=== PATIENT | female | born 1935 | race Caucasian/White ===

== ENCOUNTER 2022-05-14 12:41 | Emergency (ER) | payer MEDICARE, SELFPAY ==
--- NOTE | ~2022-05-14 | XR_ITS ---
XR chest 1V portable DATE: 05/14/2022 13:09 INDICATION: Weakness TECHNIQUE: Portable upright AP chest on 05/14/2022 at 1302 hours COMPARISON: 11/22/2018 AP chest FINDINGS: There is moderate elevation right leaf of the diaphragm, chronic, also present on 11/22/2018 . Normal heart size. Aortic calcification and mild aortic unfolding. No hilar or mediastinal enlargement. No pulmonary infiltrate or consolidation, pleural effusion or pulmonary vascular congestion or pneumo thorax. Diffuse osteopenia. Severe glenohumeral osteoarthritis is noted bilaterally, with probable bilateral rotator cuff atrophy . Multiple apparently recent lateral left rib fractures, including at least the fourth through sixth ri bs. 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 BIT CLEANER IMPRESSION: Multiple recent lateral left rib fractures Osteopenia Severe bilateral glenohumeral osteoarthritis, probable bilateral chronic rotato r cuff atrophy Chronic elevation right diaphragm No active cardiac pulmonary disease Aortic atherosclerosis
--- NOTE | 2022-05-14 12:49 | ECG_ITS ---
Measurements Intervals [place] Rate: 84 P: 61 AL: 201 QRS: -42 QRSD: 78 T: 15 QT: 391 QTc: 463 Interpretive Statements SINUS RHYTHM WITH SINUS ARRHYTHMIA LEFT AXIS DEVIATION BORDERLINE AV CONDUCTION DELAY POOR R WAVE PROGRESSION, ANTERIOR LEADS BORDERLINE T WAVE ABNORMALITY- INFERIOR LEADS BASELINE ARTIFACT- I, II, AVR, AVL, AVF BORDERLINE ECG COMPARED TO ECG 11/22/2018 19:41:33 SINUS ARRHYTHMIA NOW PRESENT LEFT-AXIS DEVIATION NOW PRESENT Electronically Signed On 05-14-2022 13:08:34 LIABILITY CLAIMS EXAMINER by Errol Carvalho D.O.
--- NOTE | 2022-05-14 13:18 | ED.GENADULT ---
HPI - General Adult General Chief complaint: Weakness Stated complaint: FTT, TIRED, DECREASE PO INTAKE Time Seen by Provider: 05/14/22 13:18 Source: patient, family and EMS Mode of arrival: EMS Limitations: no limitations History of Present Illness HPI narrative: Patient is 87 years old white female brought to the emergency room by ambulance from home with her daughters was telling me that patient is weak, does not eat or drink, does not take her medication, refused any blood work-up over 1 year. Patient lives alone, family assist on daily basis. Patient denies any fever, chills, nausea, vomiting, diarrhea, constipation, chest pain, shortness of breath, headache. Related Data Home Medications Medication Instructions Recorded Confirmed citalopram 40 mg tablet 20 mg PO DAILY 04/05/21 10/20/21 mirtazapine 7.5 mg tablet 7.5 mg PO DAILY 04/05/21 10/20/21 propranolol 20 mg tablet 20 mg PO Q12H 10/20/21 10/20/21 Allergies Allergy/AdvReac Type Severity Reaction Status Date / Time No Known Allergies Allergy Verified 05/14/22 12:48 Review of Systems Review of Systems: All systems reviewed & are unremarkable except as noted in HPI and below PMFSH Family History Family History Father Patient's father is Family history of Alzheimer's disease Mother Patient's mother is Other Diabetes mellitus Family history of arthritis Hypertension Social History Social History Smoking status: Never smoker Second hand tobacco smoke exposure: No Alcohol intake: current Exam Narrative: General appearance: Well-developed, malnourished Skin: Normal color Head: Normocephalic, nontraumatic Eyes: Clear conjunctiva ENT: Oropharynx normal, ears normal, nose normal Neck: Supple, nontender Chest and respiratory: Airway patent, no respiratory distress, no accessory muscle use Heart: Regular rate/rhythm Abdomen: Soft, nontender, no organomegaly, quiet bowel sounds Vascular: Normal peripheral pulses, normal capillary refill. Musculoskeletal: Normal range of motion, nontender back Neurologic: Alert and oriented ?3, PHP DEVELOPER is normal as tested, no gross motor deficit Course Consultations Consultation #1: transcription coordinator, Patient is not qualified for hospice at this time, Date: 05/14/22 Time: 15:19 Vital Signs Vital signs: Vital Signs Pulse Rate 84 05/14/22 14:09 Pulse Rate 78 05/14/22 16:18 Respiratory Rate 16 05/14/22 16:18 Blood Pressure 133/76 05/14/22 16:18 Pulse Oximetry 98 05/14/22 16:18 Medical Decision Making MDM Narrative Medical decision making narrative: Patient lives alone, family help on daily basis, does not eat or drink enough daily for a while. Her daughter requested DNR and hospice also requested to not keep patient in the hospital and would like to take her home but would like to see what is going on in her blood work-up. Currently patient is DNR and would like to change to comfort measures only and hospice. Family physician unable to get her to hospice because she is not qualified. Patient denying any symptoms, Physical examination showed no significant abnormality except that patient looks weak but not in any pain or distress, smiling, and appreciating the staff and hospital attention. Labs, EKG, chest x-ray ordered. Work-up showed slight elevation of creatinine of 1.4 patient had previous elevated creatinine up to 1.6 in 2019. Albumin level of 3.4 Which can qualify patient for malnutrition. The patient is very happy to go back home, family agreed. The pt was
[2022-05-14 14:09] VITALS: PULSE 84
[2022-05-14 14:16] LABS: Basophils Percent Auto 0.3 % (0.2-1.2); Eosinophils Absolute Auto 0.2 K/mm3 (0-0.3); Eosinophils Percent Auto 2.6 % (0-4.4); Hematocrit 46.4 % (37.0-47.0); Hemoglobin 14.3 g/dL (12.0-15.0); Immature Granulocyte Absolute 0.03 K/mm3 (0.00-0.031); Immature Granulocyte Percent A 0.4 % (0-0.5); Lymphocytes Absolute Auto 1.12 K/mm3 (0.9-3.2); Lymphocytes Percent Auto 14.8 % (18.3-44.2); Mean Corpuscular HGB Conc 30.8 g/dl (32-36); Mean Corpuscular Hemoglobin 29.9 pg (26-34); Mean Corpuscular Volume 96.9 fl (80-100); Monocytes Absolute Auto 0.5 K/mm3 (0.1-0.6); Monocytes Percent Auto 7.1 % (2.6-8.5); Neutrophils Absolute Auto 5.7 K/mm3 (1.3-6.7); Neutrophils Percent Auto 74.8 % (45.5-73.1); Platelet Count Result 390 k/mm3 (150-375); Red Blood Count 4.79 M/mm3 (4.2-5.4); Red Cell Distribution Width 13.4 % (11.5-14.5); White Blood Count 7.6 K/mm3 (4.5-10.0)
[2022-05-14 14:17] LABS: Appearance Urine Clear (Clear); Bilirubin Urine 2+ (Negative); Blood Urine Negative (Negative); Color Urine Yellow (Yellow); Glucose Urine UA Negative (Negative); Ketones Urine Trace mg/dL (Negative); Leukocyte Esterase Ur Trace LEU/UL (Negative); Nitrate Urine Negative (Negative); Protein Urine Negative (Negative); Specific Grav Ur >= 1.030 (1.001-1.035); Urobilinogen Urine 0.2 mg/dL (<2.0)
[2022-05-14 14:28] LABS: Add Urine Microscopic? YES; Mucus Urine Rare /lpf; Squamous Epithelial Cell Urine Rare /hpf (Few)
[2022-05-14 14:30] LABS: Alanine Aminotransferase 15 U/L (6-35); Albumin Level 3.4 g/dL (3.5-5.1); Alkaline Phosphatase 85 U/L (38-126); Anion Gap 7 mmol/L (8-16); Aspartate Amino Transferase 23 U/L (14-36); Bilirubin,Total 0.7 mg/dL (0.2-1.3); Blood Urea Nitrogen 43 mg/dL (7-17); Calcium 8.8 mg/dL (8.4-10.2); Carbon Dioxide 24 mmol/L (22-30); Chloride 111 mmol/L (98-107); Estimated CRCL calculation 19 ml/min; Estimated Glomerular Filt Rate 36; Glucose 83 mg/dL (65-110); Potassium 4.6 mmol/L (3.4-5.0); Sodium 142 mmol/L (137-145)
[2022-05-14 16:18] VITALS: BP 133/76; PULSE 78; RESP 16; O2SAT 98
== END 2022-05-14 16:19 | disposition home or self-care (01) ==
PROVIDERS: Emergency Provider Emergency Medicine; PCP Internal Medicine
DX: F32.9 Major depressive disorder, single episode, unspecified (principal); R62.7 Adult failure to thrive; Z68.22 Body mass index [BMI] 22.0-22.9, adult; Z66 Do not resuscitate; R94.31 Abnormal electrocardiogram [ECG] [EKG]
CPT/HCPCS: 36415; 71045; 80053; 81001; 85025; 93005; 99283

== ENCOUNTER 2022-06-29 19:54 | Observation (INO) | payer MEDICARE, SELFPAY ==
[2022-06-29] VITALS (11 sets, daily range): BP systolic 100–102; BP diastolic 68–77; PULSE 54–64; RESP 12–20; TEMP 36.2–36.6; O2SAT 92–99
--- NOTE | ~2022-06-29 | CT_ITS ---
EXAMINATION: CT brain wo con INDICATION: Confusion COMPARISON: None TECHNIQUE: Standard unenhanced head CT. The dose-length product (DLP) was 832.33 mGy-cm. The mA was a djusted according to patient size. Iterative reconstruction technique was employed. FINDINGS: There is no acute intraparenchymal hemorrhage. No evidence of mass lesion. No evidence of a cute infarction. 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 There is moderate periventricular and subcor tical hypodensity probably related to small vessel ischemic disease. There is moderate prominence of the sulci and ventricles related to cerebral atrophy. Intracranial calcified cerebral atherosclerosis is noted. There are no extra-axial collections. There is no mass effect or midline shift. The orbits and soft tissues are unremarkable. The visualized sinuses and mastoid air cells are well aerated. IMPRESSION: 1. Old left occipital infarct without acute intracranial abnormality. 2. Age related findings. Reviewed, dictated and finalized at location F. ING CONSULTANT
--- NOTE | ~2022-06-29 | XR_ITS ---
EXAMINATION: XR chest 1V portable INDICATION: Weakness TECHNIQUE: Portable AP chest at 2051 hours COMPARISON: 05/14/2022 FINDINGS: The lungs are free of acute opacities. No pleural effusion or pneumothorax. The cardiomedia stinal silhouette is normal. Multiple healing displaced left-sided rib fractures are noted. There is advanced osteoarthritis of the glenohumeral joints. IMPRESSION: 1. No acute cardiopulmonary abnormality. Reviewed, dictated and finalized at location F. INSTALLER
--- NOTE | ~2022-06-29 | CT_ITS ---
EXAMINATION: CT cervical spine wo con DATE: 06/29/2022 21:11 INDICATION: Neck pain TECHNIQUE: Computed tomography (CT) of the cervical spine was performed without intravenous contrast. The dose-length product (DLP) was 175.98 mGy-cm. Automated exposure control and iterative reconstruc tion technique were employed. COMPARISON: None FINDINGS: Motion artifact limits the examination. There is no fracture. There are 2 mm of anterolisth esis of C4 on C5 and C7 on T1 and 2 mm of retrolisthesis of C6 on C7. The vertebral body heights are maintained. There is severe loss of intervertebral disc space height at C5-6 and C6-7. There is multi level moderate facet and uncovertebral joint osteoarthritis. The odontoid process is intact. IMPRESSION: 1. Moderate to severe cervical spondylosis without acute findings, sensitivity slightly limited by mo tion artifact. Reviewed, dictated and finalized at location F. COM SALES CONSULTANT IMPRESSION: 1. Moderate to severe cervical spondylosis without acute findings, sensitivity slightly limited by motion artifact.
--- NOTE | 2022-06-29 20:10 | ECG_ITS ---
Measurements Intervals [place] Rate: 60 P: -11 TX: 194 QRS: -36 QRSD: 81 T: 30 QT: 409 QTc: 412 Interpretive Statements SINUS RHYTHM LEFT AXIS DEVIATION PATTERN CONSISTENT WITH PULMONARY DISEASE NONSPECIFIC T-WAVE ABNORMALITY- ANT/INF LEADS BASELINE ARTIFACT- I, II, AVR, V1 BORDERLINE ECG COMPARED TO ECG 05/14/2022 13:06:25 NO SIGNIFICANT CHANGES Electronically Signed On 06-30-2022 6:48:36 REFUGE WORKER by Errol Carvalho D.O.
--- NOTE | 2022-06-29 20:18 | PC.NURSE ---
Patients family arrives at bedside, states that the patient has had increased confusion today. Patients granddaughter states she does the wound care for patient. Wound is bandaged at this time.
[2022-06-29] MEDS: SODIUM CHLORIDE 0.9% IV 1,000 ML 999 ML IV CONT (21:16)
--- NOTE | 2022-06-29 21:22 | ED.GENADULT ---
HPI - General Adult General Chief complaint: Altered Mental Status Stated complaint: AMS Time Seen by Provider: 06/29/22 20:30 History of Present Illness HPI narrative: Patient 87-year-old female presents emerged department with chief complaint of generalized weakness and decreased mental status. Patient had a ground-level fall today and the family has noticed that she has been somewhat confused since that time patient is not on blood thinners they report not seeing her hit her head. The patient's family states that this is similar to whenever she has been dehydrated in the past last known well is somewhat uncertain Related Data Home Medications Medication Instructions Recorded Confirmed citalopram 40 mg tablet 20 mg PO DAILY 04/05/21 05/27/22 mirtazapine 7.5 mg tablet 7.5 mg PO DAILY 04/05/21 05/27/22 Allergies Allergy/AdvReac Type Severity Reaction Status Date / Time No Known Allergies Allergy Verified 05/25/22 10:49 Review of Systems Review of Systems: A 10 system review of systems was completed on the patient and is negative except for what is stated in the HPI. Nursing and ancillary documentation was reviewed. [facility] Family History Family History Father Patient's father is Family history of Alzheimer's disease Mother Patient's mother is Other Diabetes mellitus Family history of arthritis Hypertension Social History Social History Smoking status: Never smoker Second hand tobacco smoke exposure: No Alcohol intake: current Substance use: unknown Lack of Transportation: No Lack of Food: Never True Current Housing: I Have Housing Concerned About Future Housing: No Difficulty Paying Gas/Electric Bills: No Difficulty Paying for Meds: No Currently Unemployed: No Education: High School Diploma/GED Difficulty w/ Childcare or Family Care: No Exam Narrative: GENERAL: Well-appearing, thin, cachectic. HEAD: Normocephalic, atraumatic. EYES: PERRLA and EOMI. ENT: Nares clear, no rhinorrhea or epistaxis. Mucous membranes moist. NECK: Supple. CHEST: Clear to auscultation. No respiratory distress. HEART: Regular rate and rhythm. No murmur heard. Normal peripheral pulses. ABDOMEN: Soft, nontender, nondistended, normal active bowel sounds. EXTREMITIES: Normal range of motion. No edema. SKIN: Warm, dry, no rash. There is a skin tear present in the right upper extremity NEURO: No focal deficits. Alert and confused oriented x1. PSYCH: Normal mood and affect. Course Vital Signs Vital signs: Vital Signs Temperature 36.2 C L 06/29/22 19:54 Pulse Rate 64 06/29/22 19:54 Respiratory Rate 20 06/29/22 19:54 Blood Pressure 100/68 06/29/22 19:54 Pulse Oximetry 94 06/29/22 19:54 Oxygen Delivery Room Air 06/29/22 19:54 Temperature 36.6 C 06/29/22 23:35 Pulse Rate 57 L 06/29/22 23:35 Respiratory Rate 17 06/29/22 23:35 Blood Pressure 102/77 06/29/22 23:35 Pulse Oximetry 99 06/29/22 23:35 Oxygen Delivery Room Air 06/29/22 19:54 Medical Decision Making [facility] Narrative Medical decision making narrative: Differential diagnosis includes head trauma, stroke, UTI, electrolyte abnormality pneumonia COVID. Laboratory studies showed a mildly elevated creatinine at 1.5 the patient also showed evidence of hypomagnesemia with a magnesium of 1.5 CRP was mildly elevated at 3.6. Urinalysis showed evidence of greater than 100 white blood cells in the urine patient was negative for COVID and negative for influenza. CT head and CT C-spine showed no evidence acute abnormalities chest x-ray showed no evidence of pneumonia. Given the patient's weakness and failure to thrive the case will be discussed with the hospitalist for admission Vital Signs Vital Signs: Vital Signs Temperature 36.2 C L
[2022-06-29 21:55] LABS: Basophils Percent Auto 0.2 % (0.2-1.2); Eosinophils Percent Auto 0.1 % (0-4.4); Hematocrit 44.6 % (37.0-47.0); Hemoglobin 14.3 g/dL (12.0-15.0); Immature Granulocyte Absolute 0.07 K/mm3 (0.00-0.031); Immature Granulocyte Percent A 0.4 % (0-0.5); Lymphocytes Absolute Auto 0.69 K/mm3 (0.9-3.2); Lymphocytes Percent Auto 4.2 % (18.3-44.2); Mean Corpuscular HGB Conc 32.1 g/dl (32-36); Mean Corpuscular Hemoglobin 29.7 pg (26-34); Mean Corpuscular Volume 92.7 fl (80-100); Mean Platelet Volume 10.8 fl (7.4-10.4); Monocytes Absolute Auto 1.2 K/mm3 (0.1-0.6); Neutrophils Absolute Auto 14.6 K/mm3 (1.3-6.7); Neutrophils Percent Auto 88.1 % (45.5-73.1); Platelet Count Result 375 k/mm3 (150-375); Red Blood Count 4.81 M/mm3 (4.2-5.4); Red Cell Distribution Width 13.6 % (11.5-14.5); White Blood Count 16.6 K/mm3 (4.5-10.0)
[2022-06-29 22:06] LABS: INR 1.2; Prothrombin Time 14.3 Seconds (11.1-14.7)
[2022-06-29 22:07] LABS: Partial Thromboplastin Time 27.7 SECONDS (22.3-36.8)
[2022-06-29 22:09] LABS: Alanine Aminotransferase 14 U/L (6-35); Albumin Level 3.1 g/dL (3.5-5.1); Alkaline Phosphatase 82 U/L (38-126); Anion Gap 6 mmol/L (8-16); Aspartate Amino Transferase 24 U/L (14-36); Bilirubin,Total 0.6 mg/dL (0.2-1.3); Blood Urea Nitrogen 29 mg/dL (7-17); CRP 3.6 mg/dL (<1.0); Calcium 8.4 mg/dL (8.4-10.2); Carbon Dioxide 27 mmol/L (22-30); Chloride 105 mmol/L (98-107); Estimated CRCL calculation 19 ml/min; Estimated Glomerular Filt Rate 33; Glucose 148 mg/dL (65-110); Magnesium 1.5 mg/dL (1.6-2.3); Potassium 4.2 mmol/L (3.4-5.0); Sodium 138 mmol/L (137-145)
[2022-06-29 22:18] LABS: NT Pro B Type Natriuretic Pept 2360 pg/mL (19.9-100); Troponin I 0.022 ng/mL (0.000-0.034)
[2022-06-29] MEDS: MAGNESIUM SULF 2 GM/WATER 50ML 2 GM/50 ML BAG IVPB (22:26)
[2022-06-29 22:29] LABS: Influenza A QL RT-PCR Negative (Negative); Influenza B QL RT-PCR Negative (Negative); SARS-CoV-2 RNA PCR Negative
[2022-06-29 22:43] LABS: Appearance Urine Cloudy (Clear); Bacteria Urine 4+ /hpf; Bilirubin Urine 2+ (Negative); Color Urine Dark Yellow (Yellow); Glucose Urine UA Negative (Negative); Ketones Urine Trace mg/dL (Negative); Leukocyte Esterase Ur 3+ LEU/UL (Negative); Nitrate Urine Negative (Negative); Protein Urine 1+ mg/dL (Negative); Specific Grav Ur 1.018 (1.001-1.035); Squamous Epithelial Cell Urine None seen /hpf (Few); WBC Urine >100 /hpf; pH Urine 5.5 (5.0-9.0)
[2022-06-29 22:46] LABS: Add Urine Microscopic? YES
[2022-06-29 23:16] LABS: Procalcitonin 0.2 ng/mL
[2022-06-29 23:21] LABS: Lactic Acid Reflex 1.6 mmol/L (0.7-2.0)
[2022-06-29 23:34] LABS: Troponin I 0.024 ng/mL (0.000-0.034)
[2022-06-30] VITALS (7 sets, daily range): BP systolic 111–176; BP diastolic 58–71; PULSE 49–68; RESP 16–18; TEMP 35.5–36.6; O2SAT 90–98; BMI 18.3
[2022-06-30] MEDS: ACETAMINOPHEN 325 MG TABLET 650 MG PO (02:10)
[2022-06-30] MEDS: SODIUM CHLORIDE 0.9% IV 1,000 ML 100 ML IV CONT ×3 (02:10→20:56)
--- NOTE | 2022-06-30 06:36 | PM.IMHP ---
H&P: HPI History of Present Illness Date/Time: 06/30/22 05:36 Chief Complaint: Altered mental status Narrative: 87-year-old female with past medical history of depression, essential hypertension and dementia who presented to the ER from home via EMS with altered mental status. The patient normal baseline according to family report is alert orient times 2-3. She lives by herself home. They have 3 care mess at the house that they watch on the folds while they are at work. They periodically check the cameras. At some point on the 2nd the patient had fallen. The the family was unsure if she had hit her head. Evidently they come to the patient's home each morning and change her diaper and give her her medications. It is not clear if the patient is assisted with her meals in food or for food is prepared for her or she has to fend for herself. She has a known pressure ulcer to her sacrum that her family member who is a nurse has been dressing. On the 3rd the family noticed that the patient's urine smelled foul in that she was more confused than normal so they called EMS. On arrival to the ER the patient was stating ?what should I do?. She would look at the nurses when her name was called but she would not answer any orientation questions. At the time my evaluation the patient would ask ?what? ? But would not answer any questions. When nursing staff tried to give the patient some Tylenol by mouth the patient was having difficulty drinking from a straw and when the nursing staff went back into the room later they found the patient's Tylenol in her bedding. The patient had evidently pocketed pills and never swallowed them. The patient is on propranolol and lisinopril for hypertension. Patient has been bradycardic with heart rates between 48 and 64 since presentation. CNAs reported that the patient's blood pressures were soft in the 90s but the patient his blood pressure was being checked with a normal adult cuff. When the cuff was changed with small adult cuff which fit the patient more appropriately the patient's blood pressures were in the 110's systolic. On arrival to the floor the patient was noted to have an abrasion to her right cheek, left inguinal fold, with skin tear to her right upper arm, a healing abrasion with scab to her left elbow, multiple bruises in various stages of aging, and a stage III decubitus ulcer to her sacrum. The patient has not had any urine output since arrival to the medical floor. Nursing staff reports a been having difficulty infusing the patient's IV fluids due to her IV being in her antecubital region. While I was in the room is noted patient's gown was actually wet and that her IV site had failed. The patient cannot answer any questions and does not complain of any pain. She tells the staff that she loves them and will occasionally think them while they are in the room. The patient's weight and March 2021 was 55 kg in September it was 52 kg. Her weight is now 46 kg. Evidently the family was interested in making the patient hospice recently and was told that the patient would not meet criteria for hospice. As far as I can tell from review of notes and family report the patient's PPS is no better than 50 and is more likely between 30 and 40 at baseline. Review of Systems Review of Systems: ROS unobtainable: Yes unobtainable due to mental status PMFSH Past Medical History Medical History (Updated 06/30/22 @ 07:24 by Yenifer El DO) Anxiety Dementia Depression Essential hypertension Gastric ulcer 2018 GERD (gastroesophageal reflux disease) Hyperlipidemia Vitamin D deficiency Surgical History Surgical History (Updated 06/30/22 @ 07:06 by Yenifer El DO) History of colonoscopy 2018 History of esophagogastroduodenoscopy (EGD) (~2018) History of right hip replacement (~08/2018) Due to hip fracture Hx of cholecystectomy Family History Family History (Reviewed 06/30/22 @ 07:06 by Kumar
[2022-06-30 07:10] LABS: Hematocrit 36.3 % (37.0-47.0); Hemoglobin 11.7 g/dL (12.0-15.0); Mean Corpuscular HGB Conc 32.2 g/dl (32-36); Mean Corpuscular Hemoglobin 29.3 pg (26-34); Mean Platelet Volume 10.3 fl (7.4-10.4); Platelet Count Result 335 k/mm3 (150-375); Red Blood Count 3.99 M/mm3 (4.2-5.4); Red Cell Distribution Width 13.5 % (11.5-14.5); White Blood Count 11.5 K/mm3 (4.5-10.0)
[2022-06-30 07:27] LABS: Anion Gap 0 mmol/L (8-16); Blood Urea Nitrogen 27 mg/dL (7-17); Calcium 8.1 mg/dL (8.4-10.2); Carbon Dioxide 26 mmol/L (22-30); Chloride 106 mmol/L (98-107); Estimated CRCL calculation 21 ml/min; Estimated Glomerular Filt Rate 39; Glucose 91 mg/dL (65-110); Magnesium 2.1 mg/dL (1.6-2.3); Potassium 4.1 mmol/L (3.4-5.0); Sodium 132 mmol/L (137-145)
--- NOTE | 2022-06-30 08:00 | PC.NURSE ---
Admitted to [facility] from ER via cart. Pt drowsy, unable to answer any questions, Says, thank you, I love you. [place], no teeth, no dentures. Multiple wounds, scabs in various degrees of healing. Difficult to move, pt moans, yells in discomfort. Gave tylenol with sips of water , found tylenol on blanket hour later. IVF as ordered. Gave pt straw to drink water in middle of night- pt unable to suck up water. Called daughter Bon Barton [phone] for admission information. Per daughter, pt lives alone in one story house with use of walker. She has 2 daughters who assist daily with pt. Per daughter- one of the two daughter comes in am gives pt meds and dresses pt . apply diaper. Then when daughters are at work they monitor pt per 3 cameras in the home. Then someone will return to put pt to bed. Family stated saw pt on floor from fall. Then on Saturday pt noted to be confused then brought to hospital. Daughter states pt with frequent falls, poor appetite. incontinent at times. Granddaughter is a nurse that changes drsg to sacral. Daughter states that pt reads, writes, watches game shows and plays on I pad. Discussed DNR status with daughter. Encouraged to make a plan for POA/ Code status
--- NOTE | 2022-06-30 11:32 | PCSTNOTE ---
Please refer to the Bedside Swallow Evaluation in the EMR. Please note, silent aspiration cannot be ruled out at bedside.
--- NOTE | 2022-06-30 14:52 | PM.IMPN ---
Progress Note: A&P Assessment and Plan (1) Altered mental status: Qualifiers: Altered mental status type: delirium Qualified Code(s): R41.0 - Disorientation, unspecified Code(s): R41.82 - Altered mental status, unspecified Status: Acute Assessment and Plan: Patient is brought in due to altered mental status. Head CT showing no acute findings. She has acute kidney injury noted. Patient with probable UTI. Patient's altered mental status probably related to infectious process complicated by acute kidney injury and possibly dehydration. Continue supportive care. Monitor for clearance. TSH normal. Will check B12 level. (2) Acute UTI: Code(s): N39.0 - Urinary tract infection, site not specified Status: Acute Assessment and Plan: UA noted and concerning for UTI. Rocephin started. Follow-up on urine and blood cultures. (3) Acute kidney injury: Code(s): N17.9 - Acute kidney failure, unspecified Status: Acute Assessment and Plan: Patient's creatinine was 1.4 in April. Creatinine here was 1.5 but felt that she has a lower baseline. She had normal creatinine in 2019. Continue IV fluids. Continue treatment for UTI. Monitor renal function. (4) Hypomagnesemia: Code(s): E83.42 - Hypomagnesemia Status: Acute Assessment and Plan: Mag level low and has been replaced. Follow. (5) Adult failure to thrive: Code(s): R62.7 - Adult failure to thrive Status: Acute Assessment and Plan: The patient has adult failure thrive is having increasing frequency of falls, dehydration, decreased oral intake, significant weight loss with at least a 5 kg weight loss in the last 2 months. Patient has criteria for severe protein calorie malnutrition. The patient's PPS has declined. Her baseline PPS is around 40-50. Her current PPS is 10. Any PPS below 60 is usually an indicator that the patient would qualify for hospice placement. If the patient's family was amendable hospice could certainly be a possibility for this patient. guest relations coordinator following (6) Pressure injury of coccygeal region, stage 3: Code(s): L89.153 - Pressure ulcer of sacral region, stage 3 Status: Acute Assessment and Plan: Presnt on admission. Patient's home collagenase ointment has been ordered. Wound Care has been consulted. (7) Dysphagia: Code(s): R13.10 - Dysphagia, unspecified Status: Acute Assessment and Plan: Speech therapy was consulted for swallow evaluation. Patient can have a regular diet with thin liquids with dentures in place. If she is without dentures, then she should have a pureed diet. (8) Severe protein-calorie malnutrition: Code(s): E43 - Unspecified severe protein-calorie malnutrition Status: Acute Assessment and Plan: As above. Dietitian to follow (9) Bradycardia: Code(s): R00.1 - Bradycardia, unspecified Status: Acute Assessment and Plan: Mild and asymptomatic bradycardia. Continue to hold home propranolol. Monitor. Plan DVT Prophylaxis: SCDs Code status: Full The patient is not in a safe living situation if she is be monitored by video intermittently by family. Patient would benefit from placement at a shelter facility. Case Management has been consulted. Subjective Date/time seen: 06/30/22 14:52 Interval history: 87yo female with dementia, HTN and depression here for altered mental status. Patient is alert but confused. She provides repetitive answers as 'thank you'. Family at bedside. Family member states that they check up on the patient frequently. Patient is able to ambulate to the bathroom on her own power normally. Patient is confused normally but able to carry on a conversation. Family has 3 cameras in the house to monitor the patient. Patient lives alone. Review of Systems Review of Systems: AJ ybarra
[2022-06-30] MEDS: COLLAGENASE OINT 30 GM TUBE 1 APPLIC TOPICAL (16:38)
[2022-07-01 06:00] VITALS: BP 129/62; PULSE 66; RESP 16; TEMP 35.9; O2SAT 90
[2022-07-01 06:10] LABS: Basophils Percent Auto 0.3 % (0.2-1.2); Eosinophils Absolute Auto 0.2 K/mm3 (0-0.3); Eosinophils Percent Auto 1.8 % (0-4.4); Hemoglobin 11.9 g/dL (12.0-15.0); Immature Granulocyte Absolute 0.05 K/mm3 (0.00-0.031); Immature Granulocyte Percent A 0.5 % (0-0.5); Lymphocytes Absolute Auto 1.79 K/mm3 (0.9-3.2); Lymphocytes Percent Auto 18.1 % (18.3-44.2); Mean Corpuscular HGB Conc 32.2 g/dl (32-36); Mean Corpuscular Hemoglobin 29.8 pg (26-34); Mean Corpuscular Volume 92.7 fl (80-100); Mean Platelet Volume 10.7 fl (7.4-10.4); Monocytes Percent Auto 10.1 % (2.6-8.5); Neutrophils Absolute Auto 6.9 K/mm3 (1.3-6.7); Neutrophils Percent Auto 69.2 % (45.5-73.1); Platelet Count Result 337 k/mm3 (150-375); Red Blood Count 3.99 M/mm3 (4.2-5.4); Red Cell Distribution Width 13.8 % (11.5-14.5); White Blood Count 9.9 K/mm3 (4.5-10.0)
[2022-07-01 06:22] LABS: Anion Gap 2 mmol/L (8-16); Blood Urea Nitrogen 18 mg/dL (7-17); Calcium 7.7 mg/dL (8.4-10.2); Carbon Dioxide 22 mmol/L (22-30); Chloride 113 mmol/L (98-107); Estimated CRCL calculation 29 ml/min; Estimated Glomerular Filt Rate 59; Glucose 73 mg/dL (65-110); Potassium 3.9 mmol/L (3.4-5.0); Sodium 137 mmol/L (137-145)
[2022-07-01 07:24] LABS: Folic Acid 3.2 ng/mL (2.76->20)
[2022-07-01] MEDS: MIRTAZAPINE 7.5 MG TABLET PO (08:46)
[2022-07-01] MEDS: CITALOPRAM HYDROBROMIDE 20 MG TABLET PO (08:46)
[2022-07-01] MEDS: COLLAGENASE OINT 30 GM TUBE 1 APPLIC TOPICAL (08:47)
[2022-07-01 14:00] VITALS: BP 108/83; PULSE 71; RESP 18; TEMP 36.6; O2SAT 96
--- NOTE | 2022-07-01 15:05 | PM.IMPN ---
Progress Note: A&P Assessment and Plan (1) Altered mental status: Qualifiers: Altered mental status type: delirium Qualified Code(s): R41.0 - Disorientation, unspecified Code(s): R41.82 - Altered mental status, unspecified Status: Acute Assessment and Plan: Patient is brought in for altered mental status. Head CT showing no acute findings. She has acute kidney injury and UTI. Patient's altered mental status probably related to infectious process complicated by acute kidney injury and possibly dehydration. She was treated with IV fluids and abx. Renal function normal now. TSH and B12 normal. Not much improvement in mental status. Family wants to know why she is not improving but does not want further testing. They are interested in talking with hospice. Explained that it still could be related to the UTI but may take some time for her to return to baseline. Patient lives alone and now is unable to return home alone at this point. No family member able to care for the patient at their homes. Hospice to see here. May need to go to the longterm for hospice. Not appropriate for inpatient hospice at this time. (2) Acute UTI: Code(s): N39.0 - Urinary tract infection, site not specified Status: Acute Assessment and Plan: UA noted and concerning for UTI so Rocephin started. UCx growing dunaway-sensitive EColi. BCx NGTD. WBC normal now. Continue abx. (3) Acute kidney injury: Code(s): N17.9 - Acute kidney failure, unspecified Status: Acute Assessment and Plan: Patient's creatinine was 1.4 in April. Creatinine here was 1.5 and felt she had OMER. She had normal creatinine in 2018. Treated with IV fluids. Continue treatment for UTI. Cr normal now. Stop IV fluids. (4) Hypomagnesemia: Code(s): E83.42 - Hypomagnesemia Status: Acute Assessment and Plan: Mag level low and has been replaced. Follow. (5) Adult failure to thrive: Code(s): R62.7 - Adult failure to thrive Status: Acute Assessment and Plan: The patient has adult failure thrive is having increasing frequency of falls, dehydration, decreased oral intake, significant weight loss with at least a 5 kg weight loss in the last 2 months. Patient has criteria for severe protein calorie malnutrition. The patient's PPS has declined. Her baseline PPS is around 40-50. Hospice consult. 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 (6) Pressure injury of coccygeal region, stage 3: Code(s): L89.153 - Pressure ulcer of sacral region, stage 3 Status: Acute Assessment and Plan: Presnt on admission. Patient's home collagenase ointment has been ordered. Wound Care has been consulted. (7) Dysphagia: Code(s): R13.10 - Dysphagia, unspecified Status: Acute Assessment and Plan: Speech therapy was consulted for swallow evaluation. Patient can have a regular diet with thin liquids with dentures in place. If she is without dentures, then she should have a pureed diet. (8) Severe protein-calorie malnutrition: Code(s): E43 - Unspecified severe protein-calorie malnutrition Status: Acute Assessment and Plan: As above. Dietitian to follow (9) Bradycardia: Code(s): R00.1 - Bradycardia, unspecified Status: Acute Assessment and Plan: Mild and asymptomatic bradycardia. Continue to hold home propranolol. Monitor. Plan DVT Prophylaxis: SCDs Code status: Full The patient is not in a safe living situation if she is be monitored by video intermittently by family. Patient would benefit from placement at a intermediate facility or longterm. Case Management following Subjective Date/time seen: 07/01/22 15:05 Interval history: 87yo female with dementia, HTN and depression here for altered mental status. Patient is alert but confused. She cannot provide history. Family in the room
[2022-07-01 21:38] VITALS: BP 161/87; PULSE 80; RESP 16; TEMP 36.3; O2SAT 100
[2022-07-02 06:00] VITALS: BP 156/94; PULSE 75; RESP 14; TEMP 36.3; O2SAT 95
[2022-07-02] MEDS: CITALOPRAM HYDROBROMIDE 20 MG TABLET PO (08:40)
[2022-07-02] MEDS: COLLAGENASE OINT 30 GM TUBE 1 APPLIC TOPICAL (08:40)
[2022-07-02] MEDS: ACETAMINOPHEN 325 MG TABLET 650 MG PO (13:50)
[2022-07-02 14:00] VITALS: BP 121/70; PULSE 98; RESP 16; TEMP 36.7; O2SAT 90
[2022-07-02 14:48] VITALS: BMI 18.3
--- NOTE | 2022-07-02 16:00 | PM.IMPN ---
Progress Note: A&P Assessment and Plan (1) Altered mental status: Qualifiers: Altered mental status type: delirium Qualified Code(s): R41.0 - Disorientation, unspecified Code(s): R41.82 - Altered mental status, unspecified Status: Acute Assessment and Plan: Patient is brought in for altered mental status. Head CT showing no acute findings. TSH and B12 normal. She had acute kidney injury and UTI. Patient's altered mental status probably related to infectious process, OMER and possibly dehydration complicated by her underlying dementia. She was treated with IV fluids and abx. Renal function normal now. Some improvement in mental status. Patient lives alone with family that checks up on her. The family also has cameras in the house to keep an eye on her. She is unable to return home alone at this point. No family member able to care for the patient at their homes. Placement being arranged. (2) Acute UTI: Code(s): N39.0 - Urinary tract infection, site not specified Status: Acute Assessment and Plan: UA noted and concerning for UTI so Rocephin started. UCx growing dunaway-sensitive EColi. BCx NGTD. WBC normal now. Continue abx. (3) Acute kidney injury: Code(s): N17.9 - Acute kidney failure, unspecified Status: Acute Assessment and Plan: Patient's creatinine was 1.4 in April. Creatinine here was 1.5 and felt she had OMER. She had normal creatinine in 2018. Treated with IV fluids. Cr normal now. Follow (4) Hypomagnesemia: Code(s): E83.42 - Hypomagnesemia Status: Acute Assessment and Plan: Mag level low and has been replaced. Follow. (5) Adult failure to thrive: Code(s): R62.7 - Adult failure to thrive Status: Acute Assessment and Plan: The patient has adult failure thrive is having increasing frequency of falls, dehydration, decreased oral intake, significant weight loss with at least a 5 kg weight loss in the last 2 months. Patient has criteria for severe protein calorie malnutrition. The patient's PPS has declined. Her baseline PPS is around 40-50. Hospice consulted. As above. (6) Pressure injury of coccygeal region, stage 3: Code(s): L89.153 - Pressure ulcer of sacral region, stage 3 Status: Acute Assessment and Plan: Present on admission. Patient's home collagenase ointment has been ordered. Wound Care was consulted. (7) Dysphagia: Code(s): R13.10 - Dysphagia, unspecified Status: Acute Assessment and Plan: Speech therapy was consulted for swallow evaluation. Patient can have a regular diet with thin liquids with dentures in place. If she is without dentures, then she should have a pureed diet. (8) Severe protein-calorie malnutrition: Code(s): E43 - Unspecified severe protein-calorie malnutrition Status: Acute Assessment and Plan: As above. Dietitian to follow (9) Bradycardia: Code(s): R00.1 - Bradycardia, unspecified Status: Acute Assessment and Plan: Mild and asymptomatic bradycardia. Continue to hold home propranolol. Monitor. Plan DVT Prophylaxis: SCDs Code status: Full Subjective Date/time seen: 07/02/22 16:00 Interval history: 87yo female with dementia, HTN and depression here for altered mental status. Patient is alert but confused. She cannot provide history. Family in the room and they were updated. Review of Systems Review of Systems: ROS unobtainable: Yes unobtainable due to mental status Exam Narrative: AF 121/70 98 16 90% ra Gen - NARD Chest - lungs clear anteriorly and in the flanks CV - RRR S1/S2 Abd - Soft, NT/ND, Positive BS Ext - No pedal edema Neuro -awake, alert and confused. She is more interactive and appropriate Skin - Warm and dry. Objective Data Vital Signs Vital Signs: Vital Signs - 24 hr 07/01/22 19:56 07/01/22 21:38 07/02/22 06:00 T
[2022-07-02] MEDS: MIRTAZAPINE 7.5 MG TABLET PO (21:04)
[2022-07-02 22:00] VITALS: BP 160/78; PULSE 71; RESP 16; TEMP 35.9; O2SAT 97
[2022-07-03 05:44] VITALS: BP 177/101; PULSE 95; RESP 18; TEMP 35.8; O2SAT 72
[2022-07-03 11:43] VITALS: BP 144/85
--- NOTE | 2022-07-03 13:07 | PM.IMPN ---
Progress Note: A&P Assessment and Plan (1) Altered mental status: Qualifiers: Altered mental status type: delirium Qualified Code(s): R41.0 - Disorientation, unspecified Code(s): R41.82 - Altered mental status, unspecified Status: Acute Assessment and Plan: Patient is brought in for altered mental status. She does have underlying dementia. Head CT showing no acute findings. TSH and B12 normal. She had acute kidney injury and UTI. Patient's altered mental status probably related to infectious process, OMER and possibly dehydration complicated by her underlying dementia. She was treated with IV fluids and abx. Renal function normal now. Some improvement in mental status. Patient lives alone with family that checks up on her. The family also has cameras in the house to keep an eye on her. She is unable to return home alone at this point. No family member able to care for the patient at their homes. Placement being arranged. Her mirtazapin was changed to qhs dosing and she received last night but could explain the somnolence today. Will hold mirtazapine. If she needs this, then would use half dose next time. Family made aware and they state the patient normally is on 15mg hs. (2) Acute UTI: Code(s): N39.0 - Urinary tract infection, site not specified Status: Acute Assessment and Plan: UA noted and concerning for UTI so Rocephin started. UCx growing dunaway-sensitive EColi. BCx NGTD. WBC normal now. Changed to Cefdinir. Continue abx. (3) Acute kidney injury: Code(s): N17.9 - Acute kidney failure, unspecified Status: Acute Assessment and Plan: Patient's creatinine was 1.4 in April. Creatinine here was 1.5 and felt she had OMER. She had normal creatinine in 2019. Treated with IV fluids. Cr normal now. (4) Hypomagnesemia: Code(s): E83.42 - Hypomagnesemia Status: Acute Assessment and Plan: Mag level low and has been replaced. (5) Adult failure to thrive: Code(s): R62.7 - Adult failure to thrive Status: Acute Assessment and Plan: The patient has adult failure thrive is having increasing frequency of falls, dehydration, decreased oral intake, significant weight loss with at least a 5 kg weight loss in the last 2 months. Patient has criteria for severe protein calorie malnutrition. The patient's PPS has declined. Her baseline PPS is around 40-50. Hospice was consulted but not able to provide the services the family is requesting. Now plans for SNF but patient not participating much. As above. (6) Pressure injury of coccygeal region, stage 3: Code(s): L89.153 - Pressure ulcer of sacral region, stage 3 Status: Acute Assessment and Plan: Present on admission. Continue current wound care. Wound Care was consulted. (7) Dysphagia: Code(s): R13.10 - Dysphagia, unspecified Status: Acute Assessment and Plan: Speech therapy was consulted for swallow evaluation. Patient can have a regular diet with thin liquids with dentures in place. If she is without dentures, then she should have a pureed diet. (8) Severe protein-calorie malnutrition: Code(s): E43 - Unspecified severe protein-calorie malnutrition Status: Acute Assessment and Plan: As above. Dietitian to follow (9) Bradycardia: Code(s): R00.1 - Bradycardia, unspecified Status: Acute Assessment and Plan: Mild and asymptomatic bradycardia. Continue to hold home propranolol. Monitor. (10) Hypertension: Code(s): I10 - Essential (primary) hypertension Status: Acute Assessment and Plan: Patient's blood pressure was reviewed on 07/03 Blood pressure has become more elevated Will resume lisinopril at half the home dose. Continue to hold propranolol. Plan DVT Prophylaxis: SCDs Code status: Full Subjective Date/time seen: 07/03/22 13:07 Interval history:
[2022-07-03 14:00] VITALS: BP 140/89; PULSE 87; RESP 16; TEMP 36.1; O2SAT 95
[2022-07-03] MEDS: CITALOPRAM HYDROBROMIDE 20 MG TABLET PO (15:34)
[2022-07-03] MEDS: lisinopriL 10 MG TABLET PO (15:34)
[2022-07-03] MEDS: COLLAGENASE OINT 30 GM TUBE 1 APPLIC TOPICAL (15:38)
[2022-07-03] MEDS: CEFDINIR 300 MG CAPSULE PO (21:09)
[2022-07-03 22:00] VITALS: BP 146/80; PULSE 88; RESP 15; TEMP 36.3; O2SAT 93
[2022-07-04 06:02] VITALS: BP 130/73; PULSE 80; RESP 16; TEMP 36.6; O2SAT 98
[2022-07-04] MEDS: lisinopriL 10 MG TABLET PO (09:04)
[2022-07-04] MEDS: CITALOPRAM HYDROBROMIDE 20 MG TABLET PO (09:04)
[2022-07-04 09:06] VITALS: BP 118/62; PULSE 102; RESP 16; O2SAT 93
--- NOTE | 2022-07-04 11:02 | PM.IMPN ---
Progress Note: A&P Assessment and Plan (1) Altered mental status: Qualifiers: Altered mental status type: delirium Qualified Code(s): R41.0 - Disorientation, unspecified Code(s): R41.82 - Altered mental status, unspecified Status: Acute Assessment and Plan: Patient is brought in for altered mental status. She does have underlying dementia. Head CT showing no acute findings. TSH and B12 normal. She had acute kidney injury and UTI. Patient's altered mental status probably related to infectious process, OMER and possibly dehydration complicated by her underlying dementia. She was treated with IV fluids and abx. Renal function normal now. Some improvement in mental status. Patient lives alone with family that checks up on her. The family also has cameras in the house to keep an eye on her. She is unable to return home alone at this point. No family member able to care for the patient at their homes. Placement being arranged. Mirtazapine does lowered for increased somnolence (2) Acute UTI: Code(s): N39.0 - Urinary tract infection, site not specified Status: Acute Assessment and Plan: UA noted and concerning for UTI so Rocephin started. UCx growing dunaway-sensitive EColi. BCx NGTD. WBC normal now. Changed to Cefdinir. Continue abx. (3) Acute kidney injury: Code(s): N17.9 - Acute kidney failure, unspecified Status: Acute Assessment and Plan: Patient's creatinine was 1.4 in April. Creatinine here was 1.5 and felt she had OMER. She had normal creatinine in 2019. Treated with IV fluids. Cr normal now. (4) Hypomagnesemia: Code(s): E83.42 - Hypomagnesemia Status: Acute Assessment and Plan: Mag level low and has been replaced. (5) Adult failure to thrive: Code(s): R62.7 - Adult failure to thrive Status: Acute Assessment and Plan: The patient has adult failure thrive is having increasing frequency of falls, dehydration, decreased oral intake, significant weight loss with at least a 5 kg weight loss in the last 2 months. Patient has criteria for severe protein calorie malnutrition. The patient's PPS has declined. Her baseline PPS is around 40-50. Hospice was consulted but not able to provide the services the family is requesting. Now plans for SNF but patient not participating much. As above. (6) Pressure injury of coccygeal region, stage 3: Code(s): L89.153 - Pressure ulcer of sacral region, stage 3 Status: Acute Assessment and Plan: Present on admission. Continue current wound care. Wound Care was consulted. (7) Dysphagia: Code(s): R13.10 - Dysphagia, unspecified Status: Acute Assessment and Plan: Speech therapy was consulted for swallow evaluation. Patient can have a regular diet with thin liquids with dentures in place. If she is without dentures, then she should have a pureed diet. (8) Severe protein-calorie malnutrition: Code(s): E43 - Unspecified severe protein-calorie malnutrition Status: Acute Assessment and Plan: As above. Dietitian to follow (9) Bradycardia: Code(s): R00.1 - Bradycardia, unspecified Status: Acute Assessment and Plan: Mild and asymptomatic bradycardia. Continue to hold home propranolol. Monitor. (10) Hypertension: Code(s): I10 - Essential (primary) hypertension Status: Acute Assessment and Plan: Patient's blood pressure was reviewed on 07/03 Blood pressure has become more elevated Will resume lisinopril at half the home dose. Continue to hold propranolol. Plan DVT Prophylaxis: SCDs Code status: Full Subjective Date/time seen: 07/04/22 11:02 Interval history: 87yo female with dementia, HTN and depression here for altered mental status. At bedside. Discussed the care coordination. Awaiting insurance authorization. Remains confused. More alert today. Revi
[2022-07-04 12:42] LABS: Alanine Aminotransferase 13 U/L (6-35); Albumin Level 2.8 g/dL (3.5-5.1); Alkaline Phosphatase 69 U/L (38-126); Anion Gap 5 mmol/L (8-16); Aspartate Amino Transferase 18 U/L (14-36); Bilirubin,Total 0.6 mg/dL (0.2-1.3); Blood Urea Nitrogen 13 mg/dL (7-17); Calcium 8.4 mg/dL (8.4-10.2); Carbon Dioxide 25 mmol/L (22-30); Chloride 104 mmol/L (98-107); Estimated CRCL calculation 29 ml/min; Estimated Glomerular Filt Rate 59; Glucose 182 mg/dL (65-110); Magnesium 1.3 mg/dL (1.6-2.3); Potassium 3.7 mmol/L (3.4-5.0); Sodium 134 mmol/L (137-145)
[2022-07-04 12:44] LABS: Basophils Percent Auto 0.3 % (0.2-1.2); Eosinophils Percent Auto 0.1 % (0-4.4); Hematocrit 43.5 % (37.0-47.0); Immature Granulocyte Absolute 0.06 K/mm3 (0.00-0.031); Immature Granulocyte Percent A 0.5 % (0-0.5); Lymphocytes Absolute Auto 0.54 K/mm3 (0.9-3.2); Lymphocytes Percent Auto 4.6 % (18.3-44.2); Mean Corpuscular HGB Conc 29.9 g/dl (32-36); Mean Corpuscular Hemoglobin 29.4 pg (26-34); Mean Corpuscular Volume 98.4 fl (80-100); Monocytes Percent Auto 8.9 % (2.6-8.5); Neutrophils Percent Auto 85.6 % (45.5-73.1); Platelet Count Result 355 k/mm3 (150-375); Red Blood Count 4.42 M/mm3 (4.2-5.4); Red Cell Distribution Width 13.9 % (11.5-14.5); White Blood Count 11.7 K/mm3 (4.5-10.0)
[2022-07-04 14:00] VITALS: BP 115/70; PULSE 99; RESP 14; TEMP 36.3; O2SAT 96
[2022-07-04 14:36] LABS: Platelet Estimate Adequate (Adequate)
[2022-07-04 14:37] LABS: Hypochromasia 1+ (NORMAL); Schistocytes None Seen (NORMAL)
--- NOTE | 2022-07-04 15:41 | PM.DS ---
DS: Admitting Diagnosis Discharge Date 07/04/2022 Admitting Diagnosis Confusion DS: Discharge Diagnosis Discharge Diagnosis (1) Altered mental status: Qualifiers: Altered mental status type: delirium Qualified Code(s): R41.0 - Disorientation, unspecified Code(s): R41.82 - Altered mental status, unspecified Status: Acute (2) Acute UTI: Code(s): N39.0 - Urinary tract infection, site not specified Status: Acute (3) Acute kidney injury: Code(s): N17.9 - Acute kidney failure, unspecified Status: Acute (4) Hypomagnesemia: Code(s): E83.42 - Hypomagnesemia Status: Acute (5) Adult failure to thrive: Code(s): R62.7 - Adult failure to thrive Status: Acute (6) Pressure injury of coccygeal region, stage 3: Code(s): L89.153 - Pressure ulcer of sacral region, stage 3 Status: Acute (7) Dysphagia: Code(s): R13.10 - Dysphagia, unspecified Status: Acute (8) Severe protein-calorie malnutrition: Code(s): E43 - Unspecified severe protein-calorie malnutrition Status: Acute (9) Bradycardia: Code(s): R00.1 - Bradycardia, unspecified Status: Acute (10) Hypertension: Code(s): I10 - Essential (primary) hypertension Status: Acute DS: Summary Hospital Course Hospital Course: # Altered mental status: Patient is brought in for altered mental status. She does have underlying dementia. Head CT showing no acute findings. TSH and B12 normal.? She had acute kidney injury and UTI.? Patient's altered mental status probably related to infectious process, OMER and possibly dehydration complicated by her underlying dementia.? She was treated with IV fluids and abx. Renal function normal now. Some improvement in mental status. Patient lives alone with family that checks up on her. The family also has cameras in the house to keep an eye on her. She is unable to return home alone at this point. No family member able to care for the patient at their homes. Placement being arranged. ? Mirtazapine does lowered for increased somnolence # Acute UTI: UA noted and concerning for UTI so Rocephin started. UCx growing dunaway-sensitive EColi. BCx NGTD. WBC normal now. Changed to Cefdinir. Continue abx. For 2 more days #Acute kidney injury: Patient's creatinine was 1.4 in April.? Creatinine here was 1.5 and felt she had OMER.? She had normal creatinine in 2019.? Treated with IV fluids. Cr normal now. #Hypomagnesemia: Mag level low and has been replaced. #Adult failure to thrive: The patient has adult failure thrive is having increasing frequency of falls, dehydration, decreased oral intake, significant weight loss with at least a 5 kg weight loss in the last 2 months.? Patient has criteria for severe protein calorie malnutrition.? The patient's PPS has declined.? Her baseline PPS is around 40-50. Hospice was consulted but not able to provide the services the family is requesting. Now plans for SNF but patient not participating much. As above. # Pressure injury of coccygeal region, stage 3: Present on admission. Continue current wound care.? Wound Care was consulted. # Dysphagia: Speech therapy was consulted for swallow evaluation. Patient can have a regular diet with thin liquids with dentures in place. If she is without dentures, then she should have a pureed diet. # Severe protein-calorie malnutrition: As above. Dietitian to follow # Bradycardia: Mild and asymptomatic bradycardia. Continue to hold home propranolol. Monitor. No worsening will resume half the dose of propranolol at discharge # Hypertension: Blood pressure has become more elevated Resume lisinopril at half a dose along with propranolol at discharge # DVT Prophylaxis: SCDs # Code status: Inspector Set Up And Lay Out Spent with Patient Time attestation: Total time spent providing and/or coordinating discharge services: 40 minutes Exam Narrative: - ERON Chest - lungs bell
[2022-07-04] MEDS: COLLAGENASE OINT 30 GM TUBE 1 APPLIC TOPICAL (16:42)
[2022-07-04 16:54] LABS: EDCOVIDSCREEN Negative (Negative)
== END 2022-07-04 18:00 ==
LOC: ANHED 23:09 → ANH3MEDSUR 06-30 01:15
PROVIDERS: Internal Medicine; Admitting Provider Internal Medicine; Emergency Provider Emergency Medicine; PCP Internal Medicine; Visit Provider Internal Medicine
DX: R41.82 Altered mental status, unspecified (principal); N39.0 Urinary tract infection, site not specified; B96.20 Unspecified Escherichia coli [E. coli] as the cause of diseases classified elsewhere; N17.9 Acute kidney failure, unspecified; E83.42 Hypomagnesemia; R62.7 Adult failure to thrive; L89.153 Pressure ulcer of sacral region, stage 3; R13.10 Dysphagia, unspecified; E43 Unspecified severe protein-calorie malnutrition; R00.1 Bradycardia, unspecified; I10 Essential (primary) hypertension; Z20.822 Contact with and (suspected) exposure to COVID-19; R53.1 Weakness; S00.81XA Abrasion of other part of head, initial encounter; W18.30XA Fall on same level, unspecified, initial encounter; Z68.1 Body mass index [BMI] 19.9 or less, adult; E78.5 Hyperlipidemia, unspecified; Z96.641 Presence of right artificial hip joint; K21.9 Gastro-esophageal reflux disease without esophagitis; F03.90 Unspecified dementia, unspecified severity, without behavioral disturbance, psychotic disturbance, mood disturbance, and anxiety; F32.A Depression, unspecified; M47.812 Spondylosis without myelopathy or radiculopathy, cervical region; F10.90 Alcohol use, unspecified, uncomplicated; Z86.73 Personal history of transient ischemic attack (TIA), and cerebral infarction without residual deficits; Z79.899 Other long term (current) drug therapy
CPT/HCPCS: 36415; 51701; 70450; 71045; 72125; 80048; 80053; 81001; 82607; 82746; 83605; 83735; 83880; 84145; 84443; 84484; 85025; 85027; 85610; 85730; 86140; 87040; 87077; 87086; 87186; 87426; 87636; 92610; 93005; 96361; 96365; 96366; 96367; 96376; 97110; 97161; 97165; 97530; 97535; 99285; A9270; C9803; G0378; J0696; J3475; J7030